=== PATIENT | male | born 2000 | race Caucasian/White ===

== ENCOUNTER 2022-01-19 11:39 | Emergency (ER) | payer BC ==
[~2022-01-19] VITALS: Ht 172.7 cm; Wt 67.1 kg
[2022-01-19 11:55] VITALS: BP_SYST 112
--- NOTE | 2022-01-19 13:32 | NUR ---
Patient to ER bed H1 to gown for evaluation. Side rails up. Report given to Naldo FU .
--- NOTE | 2022-01-19 13:35 | NUR ---
received in chair for right shoulder pain after trip and fall today. no deformity noted. csmpt intact. aao x4. reps even and nonlabored. vss.
[2022-01-19] MEDS ORDERED: LIDOCAINE 2%, 20 ML MDV INJ ONE (13:45)
[2022-01-19] MEDS ORDERED: BUPIVACAINE /PF 0.25% 30 ML VIAL INJ ONE ×2 (13:45→13:49)
[2022-01-19] MEDS ORDERED: LIDOCAINE 2%, 20 ML MDV ONE (13:49)
[2022-01-19] MEDS ORDERED: TRAM50TA2 PO (14:54)
[2022-01-19] MEDS ORDERED: IBUP-1969 PO (14:54)
--- NOTE | 2022-01-19 15:25 | NUR ---
med cleared for d/c. given aci and rx and verbalized understanding. applied shoulder immobilizer to right shoulder. aao x4. resp even and nonlabored. vss. ambulatory with steady gait
--- NOTE | 2022-01-19 15:25 | NUR ---
Patient given written and verbal discharge instructions and verbalizes understanding. ER MD discussed with patient the results and treatment provided. Patient in stable condition. ID arm band removed. IV catheter removed intact and dressing applied, no active bleeding. Rx of given. Patient educated on pain management and to follow up with PMD. Pain Scale . Opportunity for questions provided and answered. Medication side effect fact sheet provided.
[2022-01-19 15:26] VITALS: BP_SYST 122
--- NOTE | 2022-01-19 19:18 | NUR ---
Note undone in EDM - 01/19/22 at 1918 by [id number] Patient given written and verbal discharge instructions and verbalizes understanding. ER discussed with patient the results and treatment provided. Patient in stable condition. ID arm band removed. IV catheter removed intact and dressing applied, no active bleeding. Rx of given. Patient educated on pain management and to follow up with PMD. Pain Scale . Opportunity for questions provided and answered. Medication side effect fact sheet provided.
== END 2022-01-19 19:18 | disposition home or self-care (01) ==
LOC: SED 11:39
DX: S43.121A Dislocation of right acromioclavicular joint, 100%-200% displacement, initial encounter (principal); Z79.899 Other long term (current) drug therapy; W01.0XXA Fall on same level from slipping, tripping and stumbling without subsequent striking against object, initial encounter; Y93.89 Activity, other specified; Y92.89 Other specified places as the place of occurrence of the external cause; Y99.8 Other external cause status
CPT/HCPCS: 99283; 29105; 73030; J3490; J2001